=== PATIENT | female | born 1970 | race Caucasian/White ===

== ENCOUNTER 2016-07-27 07:45 | Emergency (ER) | payer OTHER ==
[~2016-07-27] VITALS: Ht 156.2 cm; Wt 77.6 kg
[~2016-07-27 07:45] MED LIST: CITA20TA4 PO; NAPR-1169 PO
[2016-07-27 07:52] VITALS: TEMP 36.7; Ht 156.2 cm; Wt 77.6 kg
[2016-07-27] MEDS ORDERED: CEFD300C2 PO (08:12)
[2016-07-27 08:30] VITALS: BP 123/71; PULSE 76; O2SAT 98
--- NOTE | 2016-07-27 16:55 | EMERGENCY ROOM VISIT NOTE ---
History First contact with patient: 07:59 Chief Complaint: EAR PAIN Stated Complaint: EAR ACHE IN BOTH EARS,PULLED MUSCLE IN LOWER BACK History of Present Illness The patient is a 45 year old female who presents to the Emergency Room with complaints of intermittent sinus and ear congestion for the past month. The patient reports a complicated history of bilateral recurrent ear infections. She had permanent tympanostomy tubes removed recently by Dr. Thomas. She tried to call their office on Wednesday, and did not get an answer. She reports continuous pressure of both inner ears. She denies any fevers or chills, sore throat or cough. She also denies any significant sinus congestion or headache at this time. She rates her ear discomfort a 5 out of 10. The patient also complains of left lower back pain radiating into the left posterior thigh. She reports twisting her back yesterday morning. She had no falls or other acute trauma to the back. She denies any history of chronic back pain. She currently denies any left lower extremity weakness, saddle anesthesias or difficulty with bowel/bladder control. She rates her back discomfort a 6 out of 10. Review of Systems 10 system review was performed and was negative except for pertinent positives and negatives as indicated in history of present illness Past Medical/Surgical History Medical Problems: (1) Carpal Tunnel Syndrome, Left Upper Limb (2) Major Depressive Disorder, Single Episode, Unspecified (3) Recurrent otitis media of both ears (4) Tobacco Use Disorder Surgical Problems: (1) Hx of tympanostomy tubes (2) Tubal Ligation Status Family History Unremarkable Social History Smoking Status: Current Every Day Smoker Alcohol Use: none Marital Status: single Occupation Status: employed Current/Historical Medications Scheduled Cefdinir (Omnicef), 1 CAP PO BID Allergies Coded Allergies: No Known Allergies (Unverified , 08/20/15) Physical Exam Vital Signs Date Time Temp Pulse Resp B/P Pulse Ox O2 Delivery O2 Flow Rate FiO2 07/27/16 08:30 76 18 123/71 98 07/27/16 07:52 36.7 76 18 123/71 98 Room Air Physical Exam CONSTITUTIONAL: Healthy and well nourished. Alert and oriented X 3 with positive affect. Patient does not appear in any acute distress. HEENT: Normocephalic, atraumatic. Pupils equal, round and reactive. Examination shows a serous effusion of the left ear. Examination of the right ear shows TM erythema without perforation in either ear. Nares are clear. OROPHARYNX: No postnasal drip or tonsillar hypertrophy. NECK: Full active range of motion without discomfort. RESPIRATORY: Clear to auscultation bilaterally with no wheezing, crackles, rhonchi or stridor. CARDIOVASCULAR: Regular rate and rhythm with no murmurs, rubs or gallops. MUSCULOSKELETAL: The patient has mild tenderness to palpation through the left lower lumbar region and SI joint. Negative logroll. Negative sitting straight leg raise. Pedal pulses are intact. INTEGUMENTARY: No rash or other significant dermatologic conditions noted. NEUROLOGIC: No focal neurologic deficits noted. Lower extremities are sensory intact. Medical Decision & Procedures ED Course Patient history and physical exam were performed. Nurse's notes were reviewed. The patient was provided a prescription for Omnicef. She was encouraged to urinate ibuprofen and Tylenol as needed for sciatic pain. I did encourage her to follow-up with her ENT physician for further management of her otitis media. She was instructed to follow-up with her PCP as needed for any persistent sciatic pain. The patient was happy with plan of care, voiced understanding of all discharge instructions, refused any analgesics while in the emergency department, and rated her pain a 4 out of 10 at the time of discharge. Medical Decision Impression Primary Impression: Recurrent otitis media of both ears Additional Impression: Sciatica of left side Departure Information Dispostion Home / Self-Care Prescriptions Cefdinir (OMNICEF) 300 Mg Cap 1 CAP PO BID for 10 Days, #20 CAP Prov: Andrew Peace PA 07/27/16 Referrals Alexsander Thomas M.D. Forms HOME CARE DOCUMENTATION FORM, IMPORTANT VISIT INFORMATION Patient Instructions My [facility], ED Sciatica Additional Instructions Complete all Omnicef antibiotics as prescribed. Mentally apply ice to lower back region. Avoid sitting for long periods of time or heavy lifting. Ibuprofen 800 mg and/or Tylenol 1000 mg every 8 hours. You may also alternate these medications for more effective pain relief: Ibuprofen --4 HRS--> Tylenol --4 HRS--> ibuprofen --4 HRS--> Tylenol .... Follow-up with your ENT for further reevaluation and management. Follow-up with your family doctor if your sciatic pain persists. Problem Qualifiers
== END 2016-07-27 08:31 | disposition home or self-care (01) ==
LOC: C.EDB 07:47 → C.EDA 08:31
DX: H66.93 Otitis media, unspecified, bilateral (principal); M54.32 Sciatica, left side; F17.200 Nicotine dependence, unspecified, uncomplicated; Z98.51 Tubal ligation status; Z98.890 Other specified postprocedural states

== ENCOUNTER 2016-10-02 16:55 | Emergency (ER) | payer OTHER ==
[~2016-10-02] VITALS: Ht 156.2 cm; Wt 74.8 kg
[2016-10-02 16:58] VITALS: TEMP 36.6; Ht 156.2 cm; Wt 74.8 kg
[2016-10-02] MEDS ORDERED: IBUP-1050 PO (17:16)
[2016-10-02] MEDS ORDERED: BENZ1GEL2 DT (17:20)
[2016-10-02] MEDS ORDERED: TRAM-10 PO (17:30)
[2016-10-02] MEDS ORDERED: PENI-82 PO (17:30)
--- NOTE | 2016-10-02 17:32 | EMERGENCY ROOM VISIT NOTE ---
ED Visit Note First contact with patient: 17:09 CHIEF COMPLAINT: right lower toothache HISTORY OF PRESENT ILLNESS: This 45-year-old female patient presented to the emergency department with a progressive toothache for past hours. The patient believes it is coming from to lower molars, which she is scheduled to have pulled on October 14. Patient states she has had constant pain for several months , however states this morning the pain has increased. She is not complaining of right ear pain as well. The pain is now steady and severe and radiates to the face. The patient does have a dentist appointment set up her October 14, however she did not get a hold of her dentist today for evaluation of her worsening pain. They rate their pain a 8/10 and the ibuprofen they have been taking has not relieved the pain. The patient states she did take 6 - 200mg ibuprofen at noon today. Denies facial swelling or fever. The patient denies any discharge from the mouth. REVIEW OF SYSTEMS: A 6 system review of systems was completed with positives and pertinent negatives listed in the HPI. ALLERGIES: None MEDICATIONS: None PMH: Migraines, "ear disorders" SOCIAL HISTORY: Patient lives locally with her family. She admits to smoking one pack cigarettes per day. She denies alcohol or drug use. PHYSICAL EXAM: Vitals are noted on the nurse's note and reviewed by myself. Vital signs stable. Temperature 36.6C orally. GENERAL: 45-year-old female, in no acute distress, nondiaphoretic, well-developed well-nourished. Mouth: The right #2 and #3 molars are very carious and the gum is swollen and tender around it, without any discharge or signs of an abscess. The remainder of the pharynx and tonsils are without erythema, edema, or exudate. The airway is patent. There is no facial swelling, cervical or submandibular lymphadenopathy. The patient appears uncomfortable and in pain. The patient has overall very poor dental hygiene. EARS: External auditory canals clear, tympanic membranes pearly biswas without erythema or effusion bilaterally. ED COURSE: Patient was seen and evaluated as above. I discussed with her proper follow-up and treatment regarding dental pain. I offered to give patient a dose of pain medication in the emergency Department, however she declines at this time. The patient was discharged home in good condition. DIAGNOSIS: Odontalgia DIFFERENTIAL DIAGNOSIS: Dental abscess, otitis media, acute sinusitis, and others. DISCHARGE INSTRUCTIONS & TREATMENT: You have been treated in the Emergency Department for Dental Pain. You have been prescribed tramadol to be used for pain control. This is a narcotic medication. You cannot drive or consume alcohol while on this medicine. This medicine should only be used for pain that cannot be controlled with utps-nvn-[id number] pain medicines. You were prescribed Pen V K to be taken 4 times daily. This is an antibiotic. All antibiotics have the potential to cause diarrhea. Stop this medication and contact a medical provider if you were to develop any significant adverse side effects including: wheezing, shortness of breath, passing out, vomiting, or a diffuse rash. Always take antibiotics as directed and COMPLETE the ENTIRE course regardless of the improvement of your symptoms. For pain control, you can use the following itya-out-jvkbkky medicines (if >12 yo): - Regular strength (325mg/tab) Tylenol (acetaminophen) 2 tabs every 4-6 hours as needed. Do not exceed 12 tablets in a 24 hour period. Avoid taking more than 4 grams (4000 mg) of Tylenol per day. This includes any other sources of acetaminophen you may take on a regular basis. - Regular strength (200 mg/tab) Advil (ibuprofen) 1-2 tabs every 4-6 hours as needed. Do not exceed a dose of 3200 mg per day. Refrain from smoking cigarettes or using chewing tobacco until you have been evaluated by your dentist. Keeping beverages lukewarm and consuming soft foods can decrease your pain. Warm compresses over the affected area may offer some relief. You MUST seek evaluation of your dental pain by a dentist following your visit to the Emergency Department. The Emergency Department is not capable of treating dental issues long-term. You should call your dentist as soon as possible to make an appointment for evaluation of your dental pain. Return to the emergency department if you develop the following symptoms despite treatment course outlined above: fever, intractable pain, increased redness, swelling, or purulent discharge. Current/Historical Medications Scheduled Penicillin V Potassium (Veetids), 500 MG PO QID Scheduled PRN Benzocaine (Dental) (Oral Analgesic Maximum St), 1 APPLN DT UD PRN for Pain Ibuprofen (Advil), 400-600 MG PO Q6H PRN for Pain or Fever Tramadol (Ultram), 50 MG PO Q6H PRN for Pain Allergies Coded Allergies: No Known Allergies (Unverified , 09/21/16) Vital Signs Date Time Temp Pulse Resp B/P (MAP) Pulse Ox O2 Delivery O2 Flow Rate FiO2 10/02/16 16:58 36.6 69 18 122/84 97 Room Air Departure Information Impression Primary Impression: Odontalgia Additional Impression: Dental caries Dispostion Home / Self-Care Condition GOOD Prescriptions Tramadol (Ultram) 50 Mg Tab 50 MG PO Q6H Y for Pain for 3 Days, #12 TAB Prov: Melissa Barragan PA-C 10/02/16 Penicillin V Potassium (Veetids) 500 Mg Tab 500 MG PO QID for 10 Days, #40 TAB Prov: Melissa Barragan PA-C 10/02/16 Referrals Mariusz Agudelo M.D. (PCP) Patient Instructions ED Tooth Pain, [facility] Additional Instructions You have been treated in the Emergency Department for Dental Pain. You have been prescribed tramadol to be used for pain control. This is a narcotic medication. You cannot drive or consume alcohol while on this medicine. This medicine should only be used for pain that cannot be controlled with znfe-lbh-mbmprfu pain medicines. You were prescribed Pen V K to be taken 4 times daily. This is an antibiotic. All antibiotics have the potential to cause diarrhea. Stop this medication and contact a medical provider if you were to develop any significant adverse side effects including: wheezing, shortness of breath, passing out, vomiting, or a diffuse rash. Always take antibiotics as directed and COMPLETE the ENTIRE course regardless of the improvement of your symptoms. For pain control, you can use the following vuxn-vvr-mpstrpb medicines (if >12 yo): - Regular strength (325mg/tab) Tylenol (acetaminophen) 2 tabs every 4-6 hours as needed. Do not exceed 12 tablets in a 24 hour period. Avoid taking more than 4 grams (4000 mg) of Tylenol per day. This includes any other sources of acetaminophen you may take on a regular basis. - Regular strength (200 mg/tab) Advil (ibuprofen) 1-2 tabs every 4-6 hours as needed. Do not exceed a dose of 3200 mg per day. Refrain from smoking cigarettes or using chewing tobacco until you have been evaluated by your dentist. Keeping beverages lukewarm and consuming soft foods can decrease your pain. Warm compresses over the affected area may offer some relief. You MUST seek evaluation of your dental pain by a dentist following your visit to the Emergency Department. The Emergency Department is not capable of treating dental issues long-term. You should call your dentist as soon as possible to make an appointment for evaluation of your dental pain. Return to the emergency department if you develop the following symptoms despite treatment course outlined above: fever, intractable pain, increased redness, swelling, or purulent discharge. Problem Qualifiers
[2016-10-02 18:18] VITALS: BP 155/80; PULSE 70; O2SAT 97
== END 2016-10-02 18:10 | disposition home or self-care (01) ==
LOC: C.EDB 16:57 → C.EDD 18:10
DX: K08.89 Other specified disorders of teeth and supporting structures (principal); K02.9 Dental caries, unspecified; F17.200 Nicotine dependence, unspecified, uncomplicated

== ENCOUNTER → 2016-10-02 | Outpatient (CLI) | payer OTHER ==
[~2016-10-02] MED LIST changes: +BENZ1GEL2 DT; -CITA20TA4 PO; +IBUP-1050 PO; +METR-163 PO; -NAPR-1169 PO; +OXYC-57 PO; +OXYC1TAB3 PO; +PENI-82 PO; +TRAM-10 PO
[2016-10-02 17:16] LABS: HEMATOCRIT 43.5 % (37-47); MEAN CORPUSCULAR HEMOGLOBIN 32.8 pg (25-34); MEAN CORPUSCULAR HGB CONC 34.9 g/dl (32-36); MEAN PLATELET VOLUME 10.6 fL (7.4-10.4); PLATELET COUNT 317 K/uL (130-400); RED BLOOD COUNT 4.63 M/uL (4.2-5.4); WHITE BLOOD COUNT 6.89 K/uL (4.8-10.8)
[2016-10-02 17:19] LABS: POTASSIUM 3.8 mmol/L (3.5-5.1)
[2016-10-02 17:28] LABS: INR 0.9 (0.9-1.1); PARTIAL THROMBOPLASTIN RATIO 1.1; PROTHROMBIN TIME (PATIENT) 10.1 SECONDS (9.0-12.0)
[2016-10-02 18:09] LABS: BASO % 0.6 %; BASO ABS # 0.04 K/uL (0-0.2); COMPLETE YES; EOS % 1.9 %; IG% 0.3 %; LYMPH % 50.8 %; MONO % 6.4 %
== END | disposition home or self-care (01) ==
LOC: C.LABBC 13:27
DX: Z01.818 Encounter for other preprocedural examination (principal)

== ENCOUNTER 2016-10-06 19:34 | Emergency (ER) | payer OTHER ==
[~2016-10-06] VITALS: Ht 157.5 cm; Wt 74.1 kg
[~2016-10-06 19:34] MED LIST changes: -METR-163 PO; -OXYC-57 PO; -OXYC1TAB3 PO
[2016-10-06 19:44] VITALS: TEMP 36.7; Ht 157.5 cm; Wt 74.1 kg
[2016-10-06] MEDS ORDERED: OXYC1TAB3 PO (20:22)
[2016-10-06] MEDS ORDERED: OXYCODONE IR HOME PACK PO ONE (20:30)
[2016-10-06 20:35] VITALS: BP 138/87; PULSE 73; O2SAT 98
--- NOTE | 2016-10-07 00:23 | EMERGENCY ROOM VISIT NOTE ---
History First contact with patient: 20:10 Chief Complaint: DENTAL PAIN Stated Complaint: TOOTHACHE Nursing Triage Summary: Right bottom sided dental pain, been bothering patient since last wednesday. Patient unable to see dentist for pain prior to tooth extraction that is scheduled for wednesday. History of Present Illness The patient is a 45 year old female who presents to the Emergency Room with complaints of persistent right lower dental pain. The patient reports that she was here 4 days ago and provided prescriptions for penicillin and Ultram. She reports that she she is not getting any pain relief. The patient reports that she has no appointment scheduled for Wednesday at the [facility]. The patient denies any drainage or foul taste in the mouth. She rates her discomfort a 10 out of 10, and has been unable to sleep because of the pain. She denies any fevers or chills, no supple facial edema, difficulty swallowing or throat pain. Review of Systems 10 system review was performed and was negative except for pertinent positives and negatives as indicated in history of present illness Past Medical/Surgical History Medical Problems: (1) Carpal Tunnel Syndrome, Left Upper Limb (2) Major Depressive Disorder, Single Episode, Unspecified (3) Recurrent otitis media of both ears (4) Tobacco Use Disorder Surgical Problems: (1) Hx of tympanostomy tubes (2) Tubal Ligation Status Family History FH: cancer FH: diabetes mellitus FH: heart disease FH: hypertension FH: kidney disease FH: lung disease Social History Smoking Status: Current Every Day Smoker Alcohol Use: none Marital Status: single Housing Status: lives alone Occupation Status: employed Current/Historical Medications Scheduled Penicillin V Potassium (Veetids), 500 MG PO QID Scheduled PRN Ibuprofen (Advil), 400-600 MG PO Q6H PRN for Pain or Fever Oxycodone Ir (Roxicodone Ir), 1-2 TAB PO Q4H PRN for Pain Allergies Coded Allergies: No Known Allergies (Unverified , 10/06/16) Physical Exam Vital Signs Date Time Temp Pulse Resp B/P (MAP) Pulse Ox O2 Delivery O2 Flow Rate FiO2 10/06/16 20:35 73 18 138/87 98 10/06/16 19:44 36.7 68 19 129/70 98 Room Air Pain Rating (0-10): 8.0 Physical Exam CONSTITUTIONAL: Healthy and well nourished. Alert and oriented X 3 with positive affect. Patient appears in moderate discomfort from pain. HEENT: Normocephalic, atraumatic. Pupils equal, round and reactive. No facial edema noted. OROPHARYNX: The patient has mild right maxillary gingival erythema without any fluctuance or pointing. No evidence for Akbar's angina or a pharyngeal abscess. LYMPHATICS: No submandibular, submental or cervical chain adenopathy on exam. NECK: Full active range of motion without discomfort. RESPIRATORY: Clear to auscultation bilaterally with no wheezing, crackles, rhonchi or stridor. CARDIOVASCULAR: Regular rate and rhythm with no murmurs, rubs or gallops. INTEGUMENTARY: No rash or other significant dermatologic conditions noted. NEUROLOGIC: Facial sensations are intact. Medical Decision & Procedures Medications Administered Medications (Trade) Dose Ordered Sig/Tonio Route Start Time Stop Time Status Last Admin Dose Admin Oxycodone HCl (Roxicodone Immediate Rel 5MG Home Pack) 1 homepack UD ONCE PO 10/06/16 20:30 10/06/16 20:31 DC 10/06/16 20:31 1 HOMEPACK ED Course Patient history and physical exam were performed. Nurse's notes were reviewed. Vital signs were reviewed and normal. The patient is afebrile. The patient was instructed to continue and complete her current Pen-Vee K antibiotics. She was provided a prescription for OxyIR as needed for breakthrough pain. No drinking or driving while taking OxyIR. The patient was advised that she must follow-up with her dentist for further definitive care and treatment. She was also instructed to contact her PCP if are any reason her appointment gets canceled. She was advised that the emergency department does not provide dental services, referrals or chronic dental pain management. The patient voiced understanding of all discharge instructions, was happy with plan of care , and rated her pain a 9 out of 10 at the time of discharge. She was provided a home pack. Medical Decision [place] Drug Monitoring Program Search Results: patient reviewed within database, no issues identified Impression Primary Impression: Pain, dental Departure Information Dispostion Home / Self-Care Condition GOOD Prescriptions Oxycodone Ir (Roxicodone Ir) 5 Mg Tab 1-2 TAB PO Q4H Y for Pain, #24 TAB For Initial Treatment Prov: Andrew Peace PA 10/06/16 Forms HOME CARE DOCUMENTATION FORM, IMPORTANT VISIT INFORMATION Patient Instructions My [facility] Additional Instructions Finish all Pen-Vee K antibiotics as previously prescribed. Ibuprofen 800 mg and/or Tylenol 1000 mg every 8 hours. You may also alternate these medications for more effective pain relief: Ibuprofen --4 HRS--> Tylenol --4 HRS--> ibuprofen --4 HRS--> Tylenol .... OxyIR if needed for worse pain. Do not drink alcohol or drive while taking OxyIR. Soft foods. YOU MUST SEE A DENTIST FOR DEFINITIVE CARE. THE EMERGENCY DEPARTMENT DOES NOT PROVIDE DENTAL SERVICES, REFERRALS OR CHRONIC DENTAL PAIN MANAGEMENT. YOU MAY ALSO CALL YOUR FAMILY DOCTOR FOR PAIN MANAGEMENT UNTIL YOU SEE YOUR DENTIST.
== END 2016-10-06 20:37 | disposition home or self-care (01) ==
LOC: C.EDB 19:35 → C.EDD 20:37
DX: K08.89 Other specified disorders of teeth and supporting structures (principal); G56.02 Carpal tunnel syndrome, left upper limb; F32.9 Major depressive disorder, single episode, unspecified; Z83.3 Family history of diabetes mellitus; Z82.49 Family history of ischemic heart disease and other diseases of the circulatory system; F17.200 Nicotine dependence, unspecified, uncomplicated

== ENCOUNTER → 2016-10-08 | Outpatient (CLI) | payer OTHER ==
[~2016-10-08] MED LIST changes: -BENZ1GEL2 DT; +METR-163 PO; +OXYC-57 PO; +OXYC1TAB3 PO; -TRAM-10 PO
--- NOTE | 2016-10-08 21:01 | DIAGNOSTIC IMAGING REPORT ---
CHEST 2 VIEWS ROUTINE CLINICAL HISTORY: Z01.818 Pre-operative exam COMPARISON STUDY: No previous studies for comparison. FINDINGS: The cardiac and mediastinal contours are normal. There is no evidence of focal pulmonary consolidation. There is no evidence of failure. No pleural effusions are visualized.[ There is deformity of the distal right clavicle, likely postsurgical. IMPRESSION: No active disease in the chest. Electronically signed by: Kamaljit Best M.D. 10/08/2016 9:00 PM Dictated Date/Time: 10/08/2016 8:59 PM
== END | disposition home or self-care (01) ==
LOC: C.RAD 20:16
DX: Z01.818 Encounter for other preprocedural examination (principal)

== ENCOUNTER → 2016-10-09 | Day surgery (SDC) | payer OTHER ==
[2016-09-21 11:01] VITALS: Ht 157.5 cm; Wt 75.0 kg
[~2016-10-09] VITALS: Ht 157.5 cm; Wt 75.0 kg
[~2016-10-09] MED LIST changes: +ACETAMINOPHEN/HYDROCODONE ELIX 15 ML/CUP UDP ONE; +ACETAMINOPHEN/HYDROCODONE ELIX 15 ML/CUP UDP PO PRN; +ATROPINE SULFATE 0.1 MG/ML 5ML SYR IV PRN; +BACITRACIN/POLYMYXIN B OINT 15 GM TUBE EXT ONE; +DEXAMETHASONE SOD INJ 4 MG/ML VIAL ONE; +EpHEDrine SULFATE INJ 50 MG/ML AMP IV PRN; +FENTANYL CITRATE INJ 50 MCG/1 ML 2 ML VIAL ONE; +GLYCOPYRROLATE INJ 0.2 MG/ML VIAL ONE; +LACTATED RINGER'S 1000ML 1,000 ML IV SCH; +LIDOCAINE HCL 2% 2 ML VIAL (20MG/ML) ONE; +MIDAZOLAM HCL 1 MG/ML 2ML VIAL ONE; +NEOSTIGMINE METHYLSULFATE 5 MG/5 ML SYR ONE; +OFLOXACIN 0.3% OP SOLN 5 ML BTL ONE; +ONDANSETRON INJ 2 MG/ML 2 ML VIAL IV PRN; +ONDANSETRON INJ 2 MG/ML 2 ML VIAL ONE; +OXYMETAZOLINE HCL 0.05% NA SPR 15 ML BTL ONE; +PROPOFOL IV EMULSION 10 MG/ML 20 ML VIAL IV ONE; +ROCURONIUM BROMIDE 10 MG/ML 5 ML VIAL ONE; +SUCCINYLCHOLINE CHLORIDE 20 MG/ML 10 ML VIAL IV ONE
--- NOTE | 2016-10-09 08:34 | History and Physical: Surg Cnt ---
History & Physical Date Oct 09, 2016. Chief Complaint EAR INFECTIONS History of Present Illness The patient is a 45 year old female with complaints of CHRONIC OTITIS MEDIA S/P BMTX3 IN THE PAST BY ANOTHER ENT SURGEON. PATIENT WITH BILATERAL MIXED HEARING LOSS ON AUDIOGRAM AND FLAT TYMPANOGRAMS BILATERALLY. PATIENT FOUND TO HAVE 3+ ADENOID HYPERTROPHY ON EXAM. Past Medical/Surgical History Medical Problems: (1) Carpal Tunnel Syndrome, Left Upper Limb (2) Major Depressive Disorder, Single Episode, Unspecified (3) Migraines (4) Recurrent otitis media of both ears (5) Tobacco Use Disorder Surgical Problems: (1) History of carpal tunnel surgery (2) History of hysterectomy (3) History of tubal ligation (4) Hx of tympanostomy tubesX3 (5) Tubal Ligation Status 6. S/P SHOULDER SURGERY Additional History Hepatic Disease: No Endocrine Disorder: No Kidney Disease: No Hypertension: No Heart Disease: No Bleeding Tendencies: No Infectious Diseases: No Allergies Coded Allergies: No Known Allergies (Unverified , 10/09/16) Home Medications Scheduled Penicillin V Potassium (Veetids), 500 MG PO QID Scheduled PRN Ibuprofen (Advil), 400-600 MG PO Q6H PRN for Pain or Fever Oxycodone Ir (Roxicodone Ir), 1-2 TAB PO Q4H PRN for Pain Physical Examination Skin: warm/dry, no rash Eyes: normal inspection, EOMI, sclerae normal ENT: + pertinent finding (B TM RETRACTION WITH SEROUS EFFUSIONS; 3+ ADENOIDS) Head: normocephalic, atraumatic Neck: supple, no adenopathy, trachea midline Respiratory/Chest: lungs clear, normal breath sounds, no respiratory distress Cardiovascular: regular rate, rhythm, no edema, no murmur Neurologic/Psych: no motor/sensory deficits, alert, normal reflexes, oriented x 3 Diagnosis CHRONIC OTITIS MEDIA, MIXED HEARING LOSS, AND ADENOID HYPERTROPHY Plan of Treatment BMT, ADENOIDECTOMY
--- NOTE | 2016-10-09 09:51 | Discharge Instructions ---
Discharge Instructions Date of Service Oct 09, 2016. Admission Reason for Admission: Et Dysfunction, Hearing Loss, Adenoid Hypertrophy Discharge Discharge Diagnosis / Problem: SAME Discharge Goals Goal(s): Therapeutic intervention Activity Recommendations Activity Limitations: as noted below DRY EAR PRECAUTIONS WHILE TUBES IN PLACE; LIGHT ACTIVITY FOR 3 DAYS . Current Hospital Diet Patient's current hospital diet: Regular Diet Discharge Diet Recommended Diet: Regular Diet Procedures Procedures Performed: Adenoidectomy; Bilateral Myringotomy With T-Tube Placement Pending Studies Studies pending at discharge: no Medical Emergencies . Who to Call and When: Medical Emergencies: If at any time you feel your situation is an emergency, please call 911 immediately. . Non-Emergent Contact Non-Emergency issues call your: Surgeon . . "Provider Documentation" section prepared by Christiano Mesa. . VTE Core Measure Inpt VTE Proph given/why not?: SCD's
--- NOTE | 2016-10-09 09:58 | [facility] Operative Report ---
Operative Report Operative Date Oct 09, 2016. Pre-Operative Diagnosis Eustachian Tube Dysfunction, Hearing Loss, Adenoid Hypertrophy Post-Operative Diagnosis Same Procedure(s) Performed Adenoidectomy; Bilateral Myringotomy With T-Tube Placement Surgeon Dr Mesa Senior Safety Support Manager Surgeon(s) None Estimated Blood Loss 10ml Findings 1. Bilateral tympanic membrane retraction and sclerosis with mild serous effusions 2. Normal palate 3. 2-3+ adenoids Specimens A: Adenoid Tissue Anesthesia Gen. endotracheal Complication(s) None Indications The patient is a 45-year-old female with a long-standing history of chronic otitis media with effusion, eustachian tube dysfunction, and mixed hearing loss despite maximal medical therapy. She has undergone bilateral myringotomy and tube placement 3 in the past by another hand striper. Addition she was found to have significant adenoid hypertrophy. She presents for the above- mentioned procedures on an outpatient elective basis. Description of Procedure After informed consent was obtained from the patient, the patient was wheeled to the operating room and placed on the operating room table in the supine position. Monitors were placed, and after induction of general endotracheal anesthesia, the patient's head was gently turned to the left. A speculum was inserted into the right external auditory canal. The operating microscope was wheeled in used to perform the procedure. An empty alligator forceps was used to remove excess cerumen from the ear canal. A myringotomy knife was used to make a radial incision in the anterior-inferior quadrant of the tympanic membrane which was noted to be retracted and sclerotic. The middle ear space was suctioned free of a mild serous middle ear effusion. A silicone T-tube was then placed. Floxin drops were instilled into the middle ear space and a cotton ball was placed into the conchal bowl. The left side was then addressed in a similar fashion with similar intraoperative findings. The table was then turned 90 and the patient's head and neck were gently extended. A catheter was then inserted to the left nasal cavity and this was used to elevate the soft palate and uvula. A laryngeal mirror was used to inspect the nasopharynx and intraoperative findings of 2-3+ adenoid tissue. A loss prevention representative sample of this tissue was removed using an adenoid curette and sent off for permanent pathological assessment. Suction Bovie electrocautery was then used to remove the remaining portions of the adenoid tissue while achieving hemostasis simultaneously. An orogastric tube was placed and the stomach was suctioned free of air and stomach contents. This marked the end of the case. The patient tolerated the procedure well and there were no apparent complications. The patient was extubated and transferred to the recovery room in stable condition. I attest to the content of the Intraoperative Record and any orders documented therein. Any exceptions are noted below.
--- NOTE | 2016-10-09 10:11 | Anesthesia Progress Nt - [facility] ---
Anesthesia Post Op Note Date & Time Oct 09, 2016 at 10:11 Vital Signs Pain Intensity: 3 Vital Signs Past 12 Hours Date Time Temp Pulse Resp B/P (MAP) Pulse Ox O2 Delivery O2 Flow Rate FiO2 10/09/16 08:22 36.8 62 22 105/70 (82) 98 Room Air Notes Mental Status: alert / awake / arousable, participated in evaluation Pt Amnestic to Procedure: Yes Nausea / Vomiting: adequately controlled Pain: adequately controlled Airway Patency, RR, SpO2: stable & adequate BP & HR: stable & adequate Hydration State: stable & adequate Anesthetic Complications: no major complications apparent
[2016-10-09] MEDS: FENTANYL CITRATE INJ 50 MCG/1 ML 2 ML VIAL IV PRN ×2 (10:29→10:41)
[2016-10-09 11:10] VITALS: TEMP 36.6
[2016-10-09 11:38] VITALS: BP 104/69; PULSE 53; O2SAT 96
== END | disposition home or self-care (01) ==
LOC: X.SURG 07:55
DX: J35.2 Hypertrophy of adenoids (principal); H65.493 Other chronic nonsuppurative otitis media, bilateral; Z90.710 Acquired absence of both cervix and uterus; F17.200 Nicotine dependence, unspecified, uncomplicated; H90.8 Mixed conductive and sensorineural hearing loss, unspecified

== ENCOUNTER 2017-01-02 08:58 | Emergency (ER) | payer OTHER ==
[~2017-01-02] VITALS: Ht 154.9 cm; Wt 75.0 kg
[2017-01-02 09:12] VITALS: BP 135/95; PULSE 66; TEMP 37; O2SAT 99; Ht 154.9 cm; Wt 75.0 kg
--- NOTE | 2017-01-02 09:27 | EMERGENCY ROOM VISIT NOTE ---
ED Visit Note First contact with patient: 09:21 Resident Physician Supervision Note: I was present with Dr. Patel during the history and exam. I discussed the case with the resident and agree with the findings and plan as documented in the note. Documented By: Joseph Carey Current/Historical Medications No Active Prescriptions or Reported Meds Allergies Coded Allergies: No Known Allergies (Unverified , 01/02/17) Vital Signs Date Time Temp Pulse Resp B/P (MAP) Pulse Ox O2 Delivery O2 Flow Rate FiO2 01/02/17 09:12 37.0 66 20 135/95 99 Room Air Departure Information Prescriptions No Active Prescriptions or Reported Meds Referrals Mariusz Agudelo M.D. (PCP) Patient Instructions My [facility]
[2017-01-02] MEDS ORDERED: OXYC-57 PO (09:38)
[2017-01-02] MEDS ORDERED: PENI-82 PO ×2 (09:38→09:39)
--- NOTE | 2017-01-02 09:41 | EMERGENCY ROOM VISIT NOTE ---
History First contact with patient: 09:21 Chief Complaint: DENTAL PAIN Stated Complaint: TOOTHACHE Nursing Triage Summary: right lower dental pain. "it is the whole side of my face and into my ear." patient points to the right side of the face. "I am to have all my bottom teeth removed in february." History of Present Illness The patient is a 46 year old female who presents to the Emergency Room with complaints of dental pain in the right lower jaw. The patient was here in October for similar dental pain which resolved with antibiotics. The patient had touched base with her dentist after that visit and there was plan for surgical removal of the entire set of lower teeth however in February. She started with right lower dental pain yesterday. It is starting to radiate up her face and is a throbbing 9/10 pain. aggravated with touch and chewing. She has not taken any oral pain agents. The patient denies any fever, chest pain, sob. Review of Systems A 10 point review of systems was completed and negative aside from above Past Medical/Surgical History Medical Problems: (1) Carpal Tunnel Syndrome, Left Upper Limb (2) Major Depressive Disorder, Single Episode, Unspecified (3) Migraines (4) Recurrent otitis media of both ears (5) Tobacco Use Disorder Surgical Problems: (1) History of carpal tunnel surgery (2) History of hysterectomy (3) History of tubal ligation (4) Hx of tympanostomy tubes (5) Tubal Ligation Status Family History FH: cancer FH: diabetes mellitus FH: heart disease FH: hypertension FH: kidney disease FH: lung disease Social History Smoking Status: Current Every Day Smoker Alcohol Use: none Marital Status: single Housing Status: lives alone Occupation Status: employed Current/Historical Medications Scheduled Oxycodone/Acetaminophen 5MG/325MG (Percocet 5MG/325MG), 1 TAB PO QID Penicillin V Potassium (Veetids), 500 MG PO TID Allergies NKA Physical Exam Vital Signs Date Time Temp Pulse Resp B/P (MAP) Pulse Ox O2 Delivery O2 Flow Rate FiO2 01/02/17 09:12 37.0 66 20 135/95 99 Room Air Physical Exam General: ambulatory, not in acute distress Skin: no rashes noted, no suspicious lesions, no areas of inflammations/ lacerations/ erythema noted CVS: S1/ S2 noted, RRR, no rubs/ murmurs noted, no cyanosis RVS: Clear throughout bilaterally, not in acute respiratory distress, no wheezing/ rales/ crackles noted ENT: no erythema/ injection/ ulcerations noted in the pharynx, no lymphadenopathy, very poor dentition, swelling of the right lower jaw and tender to palpation, no submental swelling or tenderness, no discharge from teeth noted Neck: inspection WNL, full ROM of neck ABD: BSx4, no pain/ tenderness on palpation, no organomegaly MSK: inspection of all limbs WNL, motor and sensation intact in all limbs, no swelling/ pain on palpation of joints Lymph: No lymphadenopathy palpable Medical Decision & Procedures Medications Administered Medications (Trade) Dose Ordered Sig/Tonio Route Start Time Stop Time Status Last Admin Dose Admin Oxycodone/ Acetaminophen (Percocet 5-325mg Tab) 1 tab ONE PRN PO 01/02/17 09:45 01/02/17 10:22 DC 01/02/17 09:42 1 TAB Penicillin V Potassium (Veetids Tab) 500 mg NOW ONCE PO 01/02/17 09:45 01/02/17 09:46 DC 01/02/17 09:42 500 MG Medical Decision Differential diagnosis includes but is not limited to cellulitis, dental caries , ludwigs angina, infection and others were entertained As the patient does not have any submental tenderness and no pustular discharge from the affected teeth noted a CT was deferred. The patient was given PCN V 500 mg and percocet for pain control. We discussed the importance of close follow up with the dentist and PCP and patient reflected understanding. She was discharged home with scripts and patient was agreeable. [place] Drug Monitoring Program Search Results: patient reviewed within database, no issues identified Blood Pressure Screening Patient's blood pressure: Elevated blood pressure Blood pressure disposition: Elevated BP felt to be situational Impression Primary Impression: Dental caries Additional Impression: Pain, dental Departure Information Dispostion Home / Self-Care Condition GOOD Prescriptions Penicillin V Potassium (Veetids) 500 Mg Tab 500 MG PO TID for 10 Days, #30 TAB Prov: Clarissa Patel MD 01/02/17 Oxycodone/Acetaminophen 5MG/325MG (PERCOCET 5MG/325MG) Tab 1 TAB PO QID for 3 Days, #10 TAB PAIN Prov: Clarissa Patel MD 01/02/17 Referrals Mariusz Agudelo M.D. (PCP) Forms HOME CARE DOCUMENTATION FORM, IMPORTANT VISIT INFORMATION Patient Instructions My [facility] Additional Instructions You have received antibiotics and pain medication for your dental infection You shall be receiving Pen VK which is the antibiotic. As all antibiotics this can cause some stomach upset and diarrhea. Please take with food. If you develop a rash stop the antibiotic and call your PCP or go to a walk in clinic. You have received Percocet for pain control. Please refrain from driving or drinking any alcohol with this medication. PLEASE FOLLOW UP WITH DENTIST FOR DEFINITIVE TREATMENT Problem Qualifiers
[2017-01-02] MEDS ORDERED: PENICILLIN V POTASSIUM 250 MG TAB PO ONE (09:45)
[2017-01-02] MEDS ORDERED: OXYCODONE/ACETAMINOPHEN 5-325 TAB PO PRN (09:45)
[2017-01-03] MEDS ORDERED: METR-163 PO (11:46)
[2017-01-03] MEDS ORDERED: OXYC-57 PO (12:33)
== END 2017-01-02 09:57 | disposition home or self-care (01) ==
LOC: C.EDB 09:28
DX: K02.9 Dental caries, unspecified (principal); F32.9 Major depressive disorder, single episode, unspecified; G43.909 Migraine, unspecified, not intractable, without status migrainosus; Z80.9 Family history of malignant neoplasm, unspecified; Z83.3 Family history of diabetes mellitus; Z82.49 Family history of ischemic heart disease and other diseases of the circulatory system; Z84.1 Family history of disorders of kidney and ureter; Z83.6 Family history of other diseases of the respiratory system; F17.210 Nicotine dependence, cigarettes, uncomplicated

== ENCOUNTER 2017-01-03 09:43 | Emergency (ER) | payer OTHER ==
[~2017-01-03] VITALS: Ht 154.9 cm; Wt 75.5 kg
[~2017-01-03 09:43] MED LIST changes: -ACETAMINOPHEN/HYDROCODONE ELIX 15 ML/CUP UDP ONE; -ACETAMINOPHEN/HYDROCODONE ELIX 15 ML/CUP UDP PO PRN; -ATROPINE SULFATE 0.1 MG/ML 5ML SYR IV PRN; -BACITRACIN/POLYMYXIN B OINT 15 GM TUBE EXT ONE; -DEXAMETHASONE SOD INJ 4 MG/ML VIAL ONE; -EpHEDrine SULFATE INJ 50 MG/ML AMP IV PRN; -FENTANYL CITRATE INJ 50 MCG/1 ML 2 ML VIAL ONE; -GLYCOPYRROLATE INJ 0.2 MG/ML VIAL ONE; -IBUP-1050 PO; -LACTATED RINGER'S 1000ML 1,000 ML IV SCH; -LIDOCAINE HCL 2% 2 ML VIAL (20MG/ML) ONE; -METR-163 PO; -MIDAZOLAM HCL 1 MG/ML 2ML VIAL ONE; -NEOSTIGMINE METHYLSULFATE 5 MG/5 ML SYR ONE; -OFLOXACIN 0.3% OP SOLN 5 ML BTL ONE; -ONDANSETRON INJ 2 MG/ML 2 ML VIAL IV PRN; -ONDANSETRON INJ 2 MG/ML 2 ML VIAL ONE; -OXYC1TAB3 PO; -OXYMETAZOLINE HCL 0.05% NA SPR 15 ML BTL ONE; -PROPOFOL IV EMULSION 10 MG/ML 20 ML VIAL IV ONE; -ROCURONIUM BROMIDE 10 MG/ML 5 ML VIAL ONE; -SUCCINYLCHOLINE CHLORIDE 20 MG/ML 10 ML VIAL IV ONE
[2017-01-03 09:51] VITALS: TEMP 37.1; Ht 154.9 cm; Wt 75.5 kg
--- NOTE | 2017-01-03 09:58 | EMERGENCY ROOM VISIT NOTE ---
History Report prepared by Malloryibmike: Ewelina Hernandez Under the Supervision of: Dr. Joseph Carey M.D. First contact with patient: 09:54 Chief Complaint: DENTAL PAIN Stated Complaint: TOOTHACHE History of Present Illness The patient is a 46 year old female who presents to the Emergency Room with complaints of worsening dental pain for the past 3 days. She states the pain is located in her right lower jaw and rates her discomfort as a 10/10 in severity. She was seen here yesterday and given antibiotics and Percocet for pain control. She has been taking the antibiotics but reports her pain and swelling has worsened. The Percocet has provided minimal relief. She notes she is supposed to have several dental extractions at the end of February. Source of History: patient Onset: 3 days RECYCLING ATTENDANT Position: teeth (right lower jaw) Symptom Intensity: 10/10 Timing: worsening Modifying Factors (Relieving): narcotics (Percocet) Review of Systems See HPI for pertinent positives & negatives. A total of 10 systems reviewed and were otherwise negative. Past Medical & Surgical Medical Problems: (1) Carpal Tunnel Syndrome, Left Upper Limb (2) Major Depressive Disorder, Single Episode, Unspecified (3) Migraines (4) Recurrent otitis media of both ears (5) Tobacco Use Disorder Surgical Problems: (1) History of carpal tunnel surgery (2) History of hysterectomy (3) History of tubal ligation (4) Hx of tympanostomy tubes (5) Tubal Ligation Status Family History FH: cancer FH: diabetes mellitus FH: heart disease FH: hypertension FH: kidney disease FH: lung disease Social History Smoking Status: Current Every Day Smoker Alcohol Use: none Drug Use: none Marital Status: single Housing Status: lives alone Occupation Status: employed Current/Historical Medications Scheduled Metronidazole (Flagyl), 500 MG PO TID Oxycodone/Acetaminophen 5MG/325MG (Percocet 5MG/325MG), 1 TAB PO QID Penicillin V Potassium (Veetids), 500 MG PO TID Scheduled PRN Oxycodone/Acetaminophen 5MG/325MG (Percocet 5MG/325MG), 1-2 TAB PO Q4H PRN for Pain Allergies Coded Allergies: No Known Allergies (Unverified , 01/03/17) Physical Exam Vital Signs Date Time Temp Pulse Resp B/P (MAP) Pulse Ox O2 Delivery O2 Flow Rate FiO2 01/03/17 11:09 56 20 117/63 97 01/03/17 09:51 37.1 78 18 133/78 97 Room Air Physical Exam GENERAL: Patient is a healthy-appearing well-nourished 46 year old female HEAD: Normocephalic atraumatic EYES: Ocular movements intact pupils equal and react to light OROPHARYNX: Swelling to the right angle of the jaw, no trismus, no evidence of Akbar's angina on exam. Mucous membranes are moist NECK: Supple no nuchal rigidity CHEST: Good equal expansion LUNGS: Clear and equal to auscultation CARDIAC: Normal S1 and S2 ABDOMEN: Soft nontender no guarding BACK: No CVA tenderness EXTREMITIES: No pain upon palpation normal muscle strength in all groups no clubbing cyanosis or edema NEURO: Patient is following commands is answering questions appropriately. Alert and oriented x3 Cranial Nerves 2-12 grossly intact Medical Decision & Procedures ER Provider Diagnostic Interpretation: Radiology results as stated below per my review and radiologist interpretation: FACIAL-MAXILLOFACIAL WITH HISTORY: 46 years-old Female Pt c/o Rt dental swelling acute right-sided facial pain and swelling with concern for an odontogenic origin COMPARISON: None available. TECHNIQUE: Multiple axial CT images of the maxillofacial bones were obtained following the intravenous administration of 92 mL Optiray 320. A dose lowering technique was used consistent with the principals of ALARA. FINDINGS: The patient has no maxillary teeth. Multiple caries and periapical cysts are noted involving the mandibular teeth. There is a prominent periapical cyst noted involving the right first maxillary premolar as seen on image 140 of series 3 with mild adjacent cortical erosion. There is extensive adjacent right mandibular soft tissue swelling/phlegmon without drainable abscess. Skin thickening suggesting associated cellulitis also seen within this distribution. No opaque foreign body. No acute mandibular fracture. Mild bilateral temporomandibular joint osteoarthritis. Facial bones appear intact. There is mild ethmoid sinus disease. The left mastoid air cells are nearly completely opacified. Fluid is also seen within the left middle ear cavity. Right mastoid air cells and middle ear cavity are clear. Multilevel facet and uncovertebral spurring of the imaged cervical spine is noted. Left vertebral artery is dominant. The airway appears patent. Imaged intracranial structures are unremarkable. A mildly prominent right level 1 lymph node seen on image 31 of series 4, 2.0 x 0.8 cm is likely reactive. IMPRESSION: 1. Multifocal odontogenic disease with a moderate-sized periapical cyst with adjacent cortical erosion involving the right mandibular first premolar as above with moderate associated soft tissue swelling, phlegmon and cellulitis of the right mandibular soft tissues without drainable or loculated abscess seen at this time. 2. No acute facial bone fracture or dislocation identified. 3. Reactive right level 1 lymph node is mildly prominent in size. 4. Large left mastoid effusion with fluid also seen within the left middle ear cavity. Correlate clinically to exclude otomastoiditis. The above report was generated using voice recognition software. It may contain grammatical, syntax or spelling errors. Electronically signed by: Maynor Painting M.D. 01/03/2017 11:30 AM Laboratory Results 01/03/17 10:15 Red Blood Count 4.73, Mean Corpuscular Volume 92.4, Mean Corpuscular Hemoglobin 32.8, Mean Corpuscular Hemoglobin Concent 35.5, Mean Platelet Volume 10.4, Neutrophils (%) (Auto) 71.5, Lymphocytes (%) (Auto) 22.6, Monocytes (%) (Auto) 4.8, Eosinophils (%) (Auto) 0.7, Basophils (%) (Auto) 0.2, Neutrophils # (Auto) 7.13, Lymphocytes # (Auto) 2.25, Monocytes # (Auto) 0.48, Eosinophils # (Auto) 0.07, Basophils # (Auto) 0.02 01/03/17 10:15 Test 01/03/17 10:15 01/03/17 10:25 White Blood Count 9.97 K/uL (4.8-10.8) Red Blood Count 4.73 M/uL (4.2-5.4) Hemoglobin 15.5 g/dL (12.0-16.0) Hematocrit 43.7 % (37-47) Mean Corpuscular Volume 92.4 fL (80-100) Mean Corpuscular Hemoglobin 32.8 pg (25-34) Mean Corpuscular Hemoglobin Concent 35.5 g/dl (32-36) Platelet Count 257 K/uL (130-400) Mean Platelet Volume 10.4 fL (7.4-10.4) Neutrophils (%) (Auto) 71.5 % Lymphocytes (%) (Auto) 22.6 % Monocytes (%) (Auto) 4.8 % Eosinophils (%) (Auto) 0.7 % Basophils (%) (Auto) 0.2 % Neutrophils # (Auto) 7.13 K/uL (1.4-6.5) Lymphocytes # (Auto) 2.25 K/uL (1.2-3.4) Monocytes # (Auto) 0.48 K/uL (0.11-0.59) Eosinophils # (Auto) 0.07 K/uL (0-0.5) Basophils # (Auto) 0.02 K/uL (0-0.2) RDW Standard Deviation 42.4 fL (36.4-46.3) RDW Coefficient of Variation 12.5 % (11.5-14.5) Immature Granulocyte % (Auto) 0.2 % Immature Granulocyte # (Auto) 0.02 K/uL (0.00-0.02) Est Creatinine Clear Calc Drug Dose 78.9 ml/min Estimated GFR () 99.5 Estimated GFR (Non- 85.9 BUN/Creatinine Ratio 7.8 (10-20) Calcium Level 9.3 mg/dl (8.5-10.1) Bedside Hemoglobin 15.3 g/dl (12.0-16.0) Bedside Hematocrit 45 % (37-47) Bedside Sodium 141 mEq/L (135-144) Bedside Potassium 3.7 mEq/L (3.3-5.0) Bedside Chloride 102 mEq/L (101-112) Bedside Total CO2 26 mEq/l (24-31) Anion Gap 18.0 mmol/L (16-25) Bedside Blood Urea Nitrogen 5 mg/dl (7-18) Bedside Creatinine 0.8 mg/dl (0.6-1.3) Bedside Glucose (other) 89 mg/dl (70-99) Bedside Ionized Calcium (Lissa) 1.25 mmol/l (1.12-1.32) Labs reviewed by ED physician. Medications Administered Medications (Trade) Dose Ordered Sig/Tonio Route Start Time Stop Time Status Last Admin Dose Admin Sodium Chloride 1,000 ml @ 999 mls/hr Q1H1M STAT IV 01/03/17 10:01 01/03/17 11:01 DC 01/03/17 10:23 999 MLS/HR Piperacillin Sod/ Tazobactam Sod (Zosyn Iv) 4.5 gm NOW STAT IV 01/03/17 10:01 01/03/17 10:06 DC 01/03/17 10:23 4.5 GM Metronidazole (Flagyl / Nss) 500 mg NOW STAT IV 01/03/17 10:01 01/03/17 10:06 DC 01/03/17 11:04 500 MG Ketorolac Tromethamine (Toradol Inj) 30 mg NOW STAT IV 01/03/17 10:01 01/03/17 10:06 DC 01/03/17 10:23 30 MG Hydromorphone HCl (Dilaudid Inj) 1 mg NOW STAT IV 01/03/17 10:01 01/03/17 10:06 DC 01/03/17 10:24 1 MG Ondansetron HCl (Zofran Inj) 4 mg NOW STAT IV 01/03/17 10:01 01/03/17 10:06 DC 01/03/17 10:24 4 MG Dexamethasone Sodium Phosphate (Decadron Inj) 10 mg NOW STAT IV 01/03/17 12:00 01/03/17 12:02 DC 01/03/17 12:14 10 MG Oxycodone/ Acetaminophen (Percocet 5/ 325MG Home Pack) 1 homepack UD ONCE PO 01/03/17 12:30 01/03/17 12:31 DC 01/03/17 12:36 1 HOMEPACK ED Course 0956: Past medical records reviewed. The patient was evaluated in room B4. A complete history and physical examination was performed. 1001: Zofran 4 mg IV, Dilaudid 1 mg IV, Toradol 30 mg IV, Flagyl 500 mg IV, Zosyn 4.5 gm IV, NSS 1000 ml @ 999 mls/hr IV. 1158: I discussed the patients case with Dr. Lyons, metal storage worker. He will follow up with the patient in the office tomorrow. 1200: Decadron 10 mg IV. 1215: I reevaluated the patient. She is resting comfortably. I discussed her results and discharge instructions and she verbalized complete understanding and agreement. Medical Decision Prior records/ancillary studies reviewed. Triage Nursing notes reviewed. Differential diagnosis: Etiologies such as Akbar's angina, dental caries and abscess were considered. This is a 46 year old who presents emergency department a return visit after developing more right-sided facial swelling and pain. Based on the patient's complaint an IV was established, patient given IV Zosyn as well as Flagyl. She was sent for CAT scan of the face which was concerning for phlegmon. The patient has no evidence of Akbar's angina on exam. She was given Dilaudid and Toradol for her pain. Repeat examination revealed much improvement patient's symptoms. Dr. Lyons is kind enough to see the patient tomorrow in the office. Patient was instructed to call and will be placed on Flagyl to take with her penicillin. Medication Reconcilliation Current Medication List: was personally reviewed by me Blood Pressure Screening Patient's blood pressure: Normal blood pressure Blood pressure disposition: Did not require urgent referral Consults Time Called: 1142 Consulting Physician: Dr. Lyons, metal storage worker Returned Call: 1158 I discussed the patients case with Dr. Lyons, metal storage worker. He will follow up with the patient in the office tomorrow. Impression Primary Impression: Facial cellulitis Scribe Attestation The scribe's documentation has been prepared under my direction and personally reviewed by me in its entirety. I confirm that the note above accurately reflects all work, treatment, procedures, and medical decision making performed by me. Departure Information Dispostion Home / Self-Care Prescriptions Oxycodone/Acetaminophen 5MG/325MG (PERCOCET 5MG/325MG) Tab 1-2 TAB PO Q4H Y for Pain, #14 TAB Prov: Joseph Carey MD 01/03/17 Metronidazole (Flagyl) 500 Mg Tab 500 MG PO TID for 10 Days, #30 TAB Prov: Joseph Carey MD 01/03/17 Referrals No Doctor, Assigned (PCP) Patient Instructions ED Cellulitis Facial, ED Dental Abscess Facial Cellulitis, My [facility] Additional Instructions Follow up with Dr Lyons's office Continue taking Penicillin VK You received narcotic or benzodiazepene medication while in the emergency room today. This is an addictive medication that may cause drowziness as well as constipation. Do not drive, operate heavy machinery, or drink alcohol under the influence of this medication. Take 600 mg Ibuprofen every 6 hours Take Percocet for breakthrough pain You have been examined and treated today on an emergency basis only. This is not a substitute for, or an effort to provide, complete comprehensive medical care. It is impossible to recognize and treat all injuries or illnesses in a single emergency department visit. It is therefore important that you follow up closely with your PCP. Call as soon as possible for an appointment. Thank you for your time and consideration. I look forward to speaking with you again soon. Please don't hesitate to call us if you have any questions.
[2017-01-03] MEDS ORDERED: SODIUM CHLORIDE 0.9% 1000ML 1,000 ML IV STA (10:01)
[2017-01-03] MEDS ORDERED: PIPERACILLIN/TAZOBACTAM 4.5 GM/100ML D5W IV STA (10:01)
[2017-01-03] MEDS ORDERED: KETOROLAC TROMETHAMINE 30 MG/ML VIAL IV STA (10:01)
[2017-01-03] MEDS ORDERED: ONDANSETRON INJ 2 MG/ML 2 ML VIAL IV STA (10:01)
[2017-01-03] MEDS ORDERED: METRONIDAZOLE 500MG / 100ML NSS IV STA (10:01)
[2017-01-03] MEDS ORDERED: HYDROmorphone INJ 1 MG/ML SYR IV STA (10:01)
[2017-01-03 10:31] LABS: BASO % 0.2 %; BASO ABS # 0.02 K/uL (0-0.2); COMPLETE YES; EOS % 0.7 %; HEMATOCRIT 43.7 % (37-47); IG% 0.2 %; LYMPH % 22.6 %; LYMPH ABS # 2.25 K/uL (1.2-3.4); MEAN CELL VOLUME 92.4 fL (80-100); MEAN CORPUSCULAR HEMOGLOBIN 32.8 pg (25-34); MEAN CORPUSCULAR HGB CONC 35.5 g/dl (32-36); MEAN PLATELET VOLUME 10.4 fL (7.4-10.4); MONO % 4.8 %; NEUT % 71.5 %; PLATELET COUNT 257 K/uL (130-400); RED BLOOD COUNT 4.73 M/uL (4.2-5.4); WHITE BLOOD COUNT 9.97 K/uL (4.8-10.8)
[2017-01-03 10:40] LABS: ISTAT CREATININE 0.8 mg/dl (0.6-1.3); ISTAT HEMOGLOBIN 15.3 g/dl (12.0-16.0); ISTAT IONIZED CALCIUM 1.25 mmol/l (1.12-1.32)
[2017-01-03 10:42] LABS: BUN/CREATININE RATIO 7.8 (10-20); CALCIUM 9.3 mg/dl (8.5-10.1); CREATININE 0.81 mg/dl (0.60-1.20); POTASSIUM 3.7 mmol/L (3.5-5.1)
[2017-01-03] MEDS ORDERED: OPTIRAY 320 IV PRN (11:00)
[2017-01-03 11:09] VITALS: BP 117/63; PULSE 56; O2SAT 97
--- NOTE | 2017-01-03 11:32 | DIAGNOSTIC IMAGING REPORT ---
FACIAL-MAXILLOFACIAL WITH HISTORY: 46 years-old Female Pt c/o Rt dental swelling acute right-sided facial pain and swelling with concern for an odontogenic origin COMPARISON: None available. TECHNIQUE: Multiple axial CT images of the maxillofacial bones were obtained following the intravenous administration of 92 mL Optiray 320. A dose lowering technique was used consistent with the principals of FAR[facility]. FINDINGS: The patient has no maxillary teeth. Multiple caries and periapical cysts are noted involving the mandibular teeth. There is a prominent periapical cyst noted involving the right first maxillary premolar as seen on image 140 of series 3 with mild adjacent cortical erosion. There is extensive adjacent right mandibular soft tissue swelling/phlegmon without drainable abscess. Skin thickening suggesting associated cellulitis also seen within this distribution. No opaque foreign body. No acute mandibular fracture. Mild bilateral temporomandibular joint osteoarthritis. Facial bones appear intact. There is mild ethmoid sinus disease. The left mastoid air cells are nearly completely opacified. Fluid is also seen within the left middle ear cavity. Right mastoid air cells and middle ear cavity are clear. Multilevel facet and uncovertebral spurring of the imaged cervical spine is noted. Left vertebral artery is dominant. The airway appears patent. Imaged intracranial structures are unremarkable. A mildly prominent right level 1 lymph node seen on image 31 of series 4, 2.0 x 0.8 cm is likely reactive. IMPRESSION: 1. Multifocal odontogenic disease with a moderate-sized periapical cyst with adjacent cortical erosion involving the right mandibular first premolar as above with moderate associated soft tissue swelling, phlegmon and cellulitis of the right mandibular soft tissues without drainable or loculated abscess seen at this time. 2. No acute facial bone fracture or dislocation identified. 3. Reactive right level 1 lymph node is mildly prominent in size. 4. Large left mastoid effusion with fluid also seen within the left middle ear cavity. Correlate clinically to exclude otomastoiditis. The above report was generated using voice recognition software. It may contain grammatical, syntax or spelling errors. Electronically signed by: Maynor Painting M.D. 01/03/2017 11:30 AM Dictated Date/Time: 01/03/2017 11:19 AM
[2017-01-03] MEDS ORDERED: METR-163 PO (11:46)
[2017-01-03] MEDS ORDERED: DEXAMETHASONE SOD INJ 10 MG/ML VIAL IV STA (12:00)
[2017-01-03] MEDS ORDERED: PERCOCET HOME PACK PO ONE (12:30)
[2017-01-03] MEDS ORDERED: OXYC-57 PO (12:33)
== END 2017-01-03 12:39 | disposition home or self-care (01) ==
LOC: C.EDB 09:44
DX: L03.211 Cellulitis of face (principal); G56.02 Carpal tunnel syndrome, left upper limb; F32.9 Major depressive disorder, single episode, unspecified; Z83.3 Family history of diabetes mellitus; Z82.49 Family history of ischemic heart disease and other diseases of the circulatory system; F17.200 Nicotine dependence, unspecified, uncomplicated